=== PATIENT | male | born 1950 | race Caucasian/White ===

== ENCOUNTER 2024-04-24 07:18 | Day surgery (SDC) | payer MEDICARE ==
[~2024-04-24] VITALS: Ht 182.9 cm; Wt 117.1 kg
[~2024-04-24 07:18] MED LIST: LIDOCAINE 2% 100MG/5ML SDV (FOR ANES.) As Ordered ONE; PHENYLEPHRINE 10% OPHTH SOL 5ML OD PRN; VENTAER INH; VITA100093 PO; propofoL 200 MG/20 ML VIAL As Ordered ONE
[2024-04-24] MEDS ORDERED: LR 1,000 ML IV SCH (07:45)
[2024-04-24] MEDS: CYCLOPENTOLATE 1% OPHTH SOLN 2ML BTL OD SCH (08:03)
[2024-04-24] MEDS: OFLOXACIN 0.3 % (OCUFLOX) OPTH SOL 5ML OD ONE (08:03)
[2024-04-24] MEDS: LIDOCAINE 3.5 % 1ML OPHTH TOPICAL GEL OU ONE (08:03)
[2024-04-24] MEDS: TROPICAMIDE 1% OPHTH SOLN 15ML OD SCH (08:03)
[2024-04-24] MEDS: PHENYLEPHRINE 2.5% OPHTH SOL 2ML OD SCH (08:03)
[2024-04-24] MEDS: CEFUROXIME 1MG/0.1ML INTRACAMERAL INJ As Ordered ONE (08:41)
[2024-04-24] MEDS: LIDOCAINE 1% SDV 5ML VIAL As Ordered ONE (08:41)
[2024-04-24] MEDS: BSS IRRIG/VANCO(10MG)/TOBRA(5MG)/EPINEPH(1:1000-0.5CC)500ML BAG-ORONLY As Ordered ONE (08:42)
[2024-04-24 08:58] VITALS: BP 165/86; TEMP 97.6; O2SAT 98
== END 2024-04-24 09:15 | disposition home or self-care (01) ==
LOC: M SDC 07:18
PROVIDERS: ATTEND Ophthalmology
DX: H25.11 Age-related nuclear cataract, right eye (principal); J45.909 Unspecified asthma, uncomplicated; Z79.899 Other long term (current) drug therapy
CPT/HCPCS: 66984; 92015; J0697; V2788

== ENCOUNTER 2024-05-01 06:45 | Day surgery (SDC) | payer MEDICARE ==
[~2024-05-01] VITALS: Ht 182.9 cm; Wt 116.7 kg
[2024-05-01] MEDS: LIDOCAINE 3.5 % 1ML OPHTH TOPICAL GEL OU ONE (06:00)
[2024-05-01] MEDS: OFLOXACIN 0.3 % (OCUFLOX) OPTH SOL 5ML OS ONE (06:00)
[~2024-05-01 06:45] MED LIST changes: -LIDOCAINE 2% 100MG/5ML SDV (FOR ANES.) As Ordered ONE; -PHENYLEPHRINE 10% OPHTH SOL 5ML OD PRN; +PHENYLEPHRINE 10% OPHTH SOL 5ML OS PRN; -propofoL 200 MG/20 ML VIAL As Ordered ONE
[2024-05-01] MEDS: TROPICAMIDE 1% OPHTH SOLN 15ML OS SCH (07:18)
[2024-05-01] MEDS: CYCLOPENTOLATE 1% OPHTH SOLN 2ML BTL OS SCH (07:18)
[2024-05-01] MEDS: PHENYLEPHRINE 2.5% OPHTH SOL 2ML OS SCH (07:18)
[2024-05-01] MEDS ORDERED: MIDAZOLAM INJ 2MG/2ML VIAL As Ordered ONE (08:21)
[2024-05-01] MEDS ORDERED: fentaNYL 100 MCG/2 ML INJECTION As Ordered ONE (08:22)
[2024-05-01] MEDS: LIDOCAINE 1% SDV 5ML VIAL As Ordered ONE (08:55)
[2024-05-01] MEDS: BSS IRRIG/VANCO(10MG)/TOBRA(5MG)/EPINEPH(1:1000-0.5CC)500ML BAG-ORONLY As Ordered ONE (09:03)
[2024-05-01] MEDS: CEFUROXIME 1MG/0.1ML INTRACAMERAL INJ As Ordered ONE (09:07)
[2024-05-01 09:12] VITALS: BP 142/84; TEMP 97.3; O2SAT 95
== END 2024-05-01 09:36 | disposition home or self-care (01) ==
LOC: M SDC 06:45
PROVIDERS: ATTEND Ophthalmology
DX: H25.12 Age-related nuclear cataract, left eye (principal); J45.909 Unspecified asthma, uncomplicated; Z79.899 Other long term (current) drug therapy; Z98.41 Cataract extraction status, right eye; Z91.041 Radiographic dye allergy status
CPT/HCPCS: 66984; 92015; J0697; J2250; J3010; V2788